=== PATIENT | male | born 1990 | race Caucasian/White ===

== ENCOUNTER 2018-01-19 17:06 | Emergency (ER) | payer BC ==
[~2018-01-19] VITALS: Ht 172.7 cm; Wt 70.1 kg
[2018-01-19 17:51] LABS: ALBUMIN 4.6 g/dL (3.2-4.8); CHLORIDE 106 mEq/L (99-109); POTASSIUM 3.5 mEq/L (3.7-5.4); SODIUM 140 mEq/L (136-147)
[2018-01-19 17:53] LABS: GLUCOSE 117 mg/dL (70-99); TOTAL PROTEIN 7.1 g/dL (6.4-8.3)
[2018-01-19 17:55] LABS: TOTAL BILIRUBIN 2.1 mg/dL (0.0-1.0)
[2018-01-19 17:57] LABS: ALKALINE PHOSPHATASE 42 IU/L (3-129); CREATININE 0.8 mg/dL (0.6-1.3); GFR ESTIMATE (CALCULATED) > 59 mL/min/ (58.99-99999)
[2018-01-19 17:58] LABS: UREA NITROGEN (BUN) 8 mg/dL (9-23)
[2018-01-19 17:59] LABS: AST (GOT) 15 IU/L (2-34)
[2018-01-19 18:00] LABS: ALT (GPT) 19 IU/L (3-49)
[2018-01-19 18:59] LABS: APPEARANCE CLEAR ((CLEAR)); BILIRUBIN NEGATIVE; BLOOD NEGATIVE; COLOR YELLOW ((YELLOW)); GLUCOSE (STRIP) NEGATIVE; KETONES 5; LEUKOCYTES NEGATIVE; NITRITE NEGATIVE; PROTEIN (STRIP) NEGATIVE; SPECIFIC GRAVITY 1.008 (1.000-1.030); UCUL ADDED? NO; UROBILINOGEN 0.2 MG/DL (0.2-1.0)
[2018-01-19 19:17] LABS: SOURCE URINE
[2018-01-19 19:31] LABS: HEMATOCRIT 40.8 % (38.0-50.0); MCHC 36.8 G/DL (30.0-36.0); MCV 89.7 FL (86-99); PLATELET COUNT 211 K/uL (156-360); RBC DIS.WIDTH-CV 11.9 % (11.8-14.6); RBC DIS.WIDTH-SD 38.8 % (39-53); RED BLOOD COUNT 4.55 M/uL (4.00-5.50); WHITE BLOOD COUNT 6.1 K/uL (4.1-10.2)
[2018-01-19] MEDS ORDERED: AUGMENTIN875 MG PO (20:47)
[2018-01-19 21:32] VITALS: BP 128/79
[2018-01-20 12:24] LABS: CHLAMYDIA TRACHOMATIS NEGATIVE; NEISSERIA GONORRHOEAE NEGATIVE
== END 2018-01-19 21:32 | disposition home or self-care (01) ==
LOC: EME 17:06
DX: R10.31 Right lower quadrant pain (principal); F17.200 Nicotine dependence, unspecified, uncomplicated
CPT/HCPCS: 74176; 80053; 81003; 85027; 87491; 87591; 99281; 99284; J2543; J7030

== ENCOUNTER 2018-01-30 16:09 | Emergency (ER) | payer BC ==
[~2018-01-30] VITALS: Ht 172.7 cm; Wt 70.4 kg
[~2018-01-30 16:09] MED LIST: AUGMENTIN875 MG PO
[2018-01-30 17:16] LABS: HEMATOCRIT 42.2 % (38.0-50.0); HEMOGLOBIN 15.8 G/DL (12.5-16.6); MCH 33.4 PG (29.0-34.0); MCHC 37.4 G/DL (30.0-36.0); MCV 89.2 FL (86-99); PLATELET COUNT 203 K/uL (156-360); RBC DIS.WIDTH-CV 11.8 % (11.8-14.6); RBC DIS.WIDTH-SD 38.1 % (39-53); RED BLOOD COUNT 4.73 M/uL (4.00-5.50); WHITE BLOOD COUNT 6.4 K/uL (4.1-10.2)
[2018-01-30 17:35] LABS: ALBUMIN 4.7 g/dL (3.2-4.8); CHLORIDE 106 mEq/L (99-109); POTASSIUM 4.2 mEq/L (3.7-5.4); SODIUM 140 mEq/L (136-147)
[2018-01-30 17:37] LABS: GLUCOSE 94 mg/dL (70-99); TOTAL PROTEIN 7.1 g/dL (6.4-8.3)
[2018-01-30 17:39] LABS: TOTAL BILIRUBIN 1.2 mg/dL (0.0-1.0)
[2018-01-30 17:41] LABS: ALKALINE PHOSPHATASE 48 IU/L (3-129); CREATININE 0.9 mg/dL (0.6-1.3); GFR ESTIMATE (CALCULATED) > 59 mL/min/ (58.99-99999)
[2018-01-30 17:42] LABS: UREA NITROGEN (BUN) 14 mg/dL (9-23)
[2018-01-30 17:43] LABS: AST (GOT) 15 IU/L (2-34)
[2018-01-30 17:44] LABS: ALT (GPT) 19 IU/L (3-49)
[2018-01-30 18:33] LABS: LIPASE 42 U/L (1.0-51.0)
[2018-01-30 20:09] LABS: APPEARANCE CLEAR ((CLEAR)); BILIRUBIN NEGATIVE; BLOOD NEGATIVE; COLOR STRAW ((YELLOW)); GLUCOSE (STRIP) NEGATIVE; KETONES NEGATIVE; LEUKOCYTES NEGATIVE; NITRITE NEGATIVE; PROTEIN (STRIP) NEGATIVE; SPECIFIC GRAVITY 1.034 (1.000-1.030); UCUL ADDED? NO; UROBILINOGEN 0.2 MG/DL (0.2-1.0)
[2018-01-30 22:05] VITALS: BP 122/59
== END 2018-01-30 22:05 | disposition home or self-care (01) ==
LOC: EME 16:09
DX: R10.31 Right lower quadrant pain (principal); R05 Cough; M43.06 Spondylolysis, lumbar region; F17.200 Nicotine dependence, unspecified, uncomplicated
CPT/HCPCS: 74177; 80053; 81003; 83690; 85027; 99281; 99284; J7030